=== PATIENT | male | born 1970 | race Caucasian/White ===

== ENCOUNTER 2024-04-18 14:10 | Emergency (ER) | payer BC ==
[2024-04-18 14:21] VITALS: TEMP 98
--- NOTE | 2024-04-18 14:25 | ERPHSYRPT ---
- History of Present Illness Historian: patient Exam Limitations: no limitations Physician History: Patient had chest pain for about 4 days. He says it feels like a muscle spasm. It is in his left chest. Lying down makes it worse. Exertion makes a little bit worse. It is pretty much constant but gets worse when he lies down. Nothing else makes it worse. He does not have any fever chills or infectious symptoms. He has not had cardiac history in the past. He denies nausea vomiting and diaphoresis. He has a history of hypertension Aspirin Treatment Today: no aspirin today Allergies/Adverse Reactions: No Known Drug Allergies Allergy (Verified 04/18/24 14:11) - Review of Systems Constitutional: No Symptoms Eyes: No Symptoms Ears, Nose, & Throat: No Symptoms Respiratory: No Symptoms Abdominal/Gastrointestinal: No Symptoms Genitourinary Symptoms: No Symptoms All Other Systems: Reviewed and Negative - Nursing Vital Signs Nursing Vital Signs: Initial Vital Signs Temperature 98 F 04/18/24 14:13 Pulse Rate 69 04/18/24 14:13 Respiratory Rate 17 04/18/24 14:13 Blood Pressure 146/102 04/18/24 14:13 O2 Sat by Pulse Oximetry 98 04/18/24 14:13 Pain Scale Pain Intensity 6 - Physical Exam General Appearance: no apparent distress Eye Exam: PERRL/EOMI Neck Exam: normal inspection, non-tender Respiratory Exam: normal breath sounds, chest tenderness, lungs clear Cardiovascular Exam: regular rate/rhythm, normal heart sounds Gastrointestinal/Abdomen Exam: soft, normal bowel sounds, No tenderness, No distention Back Exam: normal inspection Extremity Exam: normal inspection, normal range of motion, No pedal edema Neurologic Exam: alert, oriented x 3, cooperative Skin Exam: normal color, warm, dry - Course Nursing assessment & vital signs reviewed: Yes EKG Interpreted by Me: RATE, NORMAL AXIS, NORMAL INTERVALS, NORMAL QRS Ordered Tests: Active Orders 24 hr Category Date Time Status EKG-ER Only STAT Care 04/18/24 14:18 Active CHEST 1 VIEW (PORTABLE) Stat Exams 04/18/24 14:18 Completed CBC W DIFF Stat Lab 04/18/24 14:40 Completed CMP Stat Lab 04/18/24 14:40 Completed D-DIMER QUANTITATIVE Stat Lab 04/18/24 14:40 Completed TROPONIN Q4H Lab 04/18/24 14:40 Completed TROPONIN Q4H Lab 04/18/24 18:30 Ordered TROPONIN Q4H Lab 04/18/24 22:30 Ordered Medication Summary Discontinued Medications Generic Name Dose Route Start Last Admin Trade Name Donal PRN Reason Stop Dose Admin Potassium Chloride 40 meq 04/18/24 15:07 04/18/24 15:13 Potassium Chloride Tab 10 Meq Tab PO 04/18/24 15:08 40 meq STAT ONE Administration Potassium Chloride Confirm 04/18/24 15:10 Potassium Chloride Tab 10 Meq Tab Administered 04/18/24 15:11 Dose 40 meq .ROUTE .STK-MED ONE Lab/Rad Data: Laboratory Result Diagrams 04/18/24 14:40 04/18/24 14:40 Laboratory Results 04/18/24 04/18/24 04/18/24 Range/Units 14:40 14:40 14:40 WBC (4.23-9.07) x10^3/uL RBC (4.63-6.08) x10^6/uL Hgb (13.7-17.5) g/dL Hct (40.1-51.0) % MCV (79.0-92.2) fL MCH (25.7-32.2) pg MCHC (32.3-36.5) g/dL RDW (11.6-14.4) % Plt Count (163-337) x10^3/uL MPV (9.4-12.4) fL Gran % (34.0-67.9) % Immature Gran % (Auto) (0.001-0.429) % Nucleat RBC Rel Count (0.00-0.2) % Eos # (Auto) (0.04-0.54) x10^3/uL Immature Gran # (Auto) (0.001-0.031) x10^3u/L Absolute Lymphs (auto) (1.32-3.57) x10^3/uL Absolute Monos (auto) (0.30-0.82) x10^3/uL Absolute Nucleated RBC (0.00-0.012) x10^3u/L Lymphocytes % (21.8-53.1) % Monocytes % (5.3-12.2) % Eosinophils % (0.8-7.0) % Basophils % (0.2-1.2) % Absolute Granulocytes (1.78-5.38) x10^3/uL Basophils # (0.01-0.08) x10^3/uL D-Dimer 0.47 (0.0-0.50) mg/L Sodium 134 L (135-145) mmol/L Potassium 3.0 L* (3.5-5.1) mmol/L Chloride 99 (98-107) mmol/L Carbon Dioxide 28 (22-30) mmol/L Anion Gap 10.7 (5-15) MEQ/L BUN 21 H (9-20) mg/dL Creatinine 1.17 (0.66-1.25) mg/dL Estimated GFR 73.2 ML/MIN Glucose 79 (74-106) mg/dL Calcium 8.4 (8.4-10.2) mg/dL Total Bilirubin 0.90 (0.2-1.3) mg/dL AST 35 (17-59) U/L ALT 33 (0-50) U/L Alkaline Phosphatase 54 (38-126) U/L Troponin I 0.031 (0.000-0.033) ng/mL Serum Total Protein 6.5 (6.3-8.2) g/dL Albumin 4.1 (3.5-5.0) g/dL Influenza Type A Ag (NEGATIVE) Influenza Type B Ag (NEGATIVE) RSV (PCR) (NEGATIVE) SARS-CoV-2 (PCR) (NEGATIVE) 04/18/24 04/18/24 Range/Units 14:40 14:18 WBC 4.4 (4.23-9.07) x10^3/uL RBC 6.08 (4.63-6.08) x10^6/uL Hgb 17.8 H (13.7-17.5) g/dL Hct 50.8 (40.1-51.0) % MCV 83.6 (79.0-92.2) fL MCH 29.3 (25.7-32.2) pg MCHC 35.0 (32.3-36.5) g/dL RDW 12.2 (11.6-14.4) % Plt Count 158 L (163-337) x10^3/uL MPV 9.9 (9.4-12.4) fL Gran % 52.3 (34.0-67.9) % Immature Gran % (Auto) 0.2 (0.001-0.429) % Nucleat RBC Rel Count 0.0 (0.00-0.2) % Eos # (Auto) 0.05 (0.04-0.54) x10^3/uL Immature Gran # (Auto) 0.01 (0.001-0.031) x10^3u/L Absolute Lymphs (auto) 1.54 (1.32-3.57) x10^3/uL Absolute Monos (auto) 0.45 (0.30-0.82) x10^3/uL Absolute Nucleated RBC 0.00 (0.00-0.012) x10^3u/L Lymphocytes % 35.2 (21.8-53.1) % Monocytes % 10.3 (5.3-12.2) % Eosinophils % 1.1 (0.8-7.0) % Basophils % 0.9 (0.2-1.2) % Absolute Granulocytes 2.28 (1.78-5.38) x10^3/uL Basophils # 0.04 (0.01-0.08) x10^3/uL D-Dimer (0.0-0.50) mg/L Sodium (135-145) mmol/L Potassium (3.5-5.1) mmol/L Chloride (98-107) mmol/L Carbon Dioxide (22-30) mmol/L Anion Gap (5-15) MEQ/L BUN (9-20) mg/dL Creatinine (0.66-1.25) mg/dL Estimated GFR ML/MIN Glucose (74-106) mg/dL Calcium (8.4-10.2) mg/dL Total Bilirubin (0.2-1.3) mg/dL AST (17-59) U/L ALT (0-50) U/L Alkaline Phosphatase (38-126) U/L Troponin I (0.000-0.033) ng/mL Serum Total Protein (6.3-8.2) g/dL Albumin (3.5-5.0) g/dL Influenza Type A Ag NEGATIVE (NEGATIVE) Influenza Type B Ag NEGATIVE (NEGATIVE) RSV (PCR) NEGATIVE (NEGATIVE) SARS-CoV-2 (PCR) POSITIVE A (NEGATIVE) - Progress Progress: re-examined, unchanged Air Movement: good Progress Note: Patient was stable throughout stay. His EKG was done as interpreted by me. There is no acute findings.. His troponin was not elevated. I do not think that is his heart. His history did not indicate that it was cardiac either. His chest x-ray was clear. He is COVID-positive.He may have some pleuritic symptoms from that infection. At this time I think the patient stable for discharge. And when to send him home with NSAIDs and something for pain if he needs it. 04/18/24 15:26 Medical Desision Making - Risk of complications Low Risk: Low risk of morbidity from additional dx testing or treatment - Departure Departure Disposition: Home Clinical Impression: COVID-19 Condition: Stable Critical Care Time: No Referrals: LIBERTAD MCMILLAN [ACTIVE STAFF] - Follow up/PCP as directed Instructions: COVID-19 ED Prescriptions: Potassium Chloride 20 meq PO BID #30 tablet
[2024-04-18 14:36] VITALS: RESP 18
--- NOTE | 2024-04-18 14:40 | XRAY ---
Indication: Chest pain. Comparison: None Portable chest inflated and clear. Heart is enlarged. Bony thorax intact with minimal degenerative changes. Impression: Cardiomegaly. Negative for acute pneumonic process or CHF.
[2024-04-18 14:41] LABS: Absolute Neutrophil Ct (ANC) 2.28 x10^3/uL (1.78-5.38); BASOPHIL % 0.9 % (0.2-1.2); Basophil (Absolute #) 0.04 x10^3/uL (0.01-0.08); Eosinophil % 1.1 % (0.8-7.0); Eosinophil (Absolute #) 0.05 x10^3/uL (0.04-0.54); Hematocrit 50.8 % (40.1-51.0); Hemoglobin 17.8 g/dL (13.7-17.5); IMMATURE GRAN # 0.01 x10^3u/L (0.001-0.031); IMMATURE GRAN % 0.2 % (0.001-0.429); Lymphocyte (Absolute #) 1.54 x10^3/uL (1.32-3.57); Lymphocytes % 35.2 % (21.8-53.1); Mean Cell Volume 83.6 fL (79.0-92.2); Mean Corpuscular Hemoglobin 29.3 pg (25.7-32.2); Mean Platelet Volume 9.9 fL (9.4-12.4); Monocyte (Absolute #) 0.45 x10^3/uL (0.30-0.82); Monocytes % 10.3 % (5.3-12.2); Neutrophil % 52.3 % (34.0-67.9); Platelet Count 158 x10^3/uL (163-337); Red Blood Count 6.08 x10^6/uL (4.63-6.08); Red Cell Distribution Width 12.2 % (11.6-14.4); White Blood Count 4.4 x10^3/uL (4.23-9.07)
[2024-04-18 14:57] LABS: ALBUMIN 4.1 g/dL (3.5-5.0); ANION GAP 10.7 MEQ/L (5-15); BILIRUBIN,TOTAL 0.9 mg/dL (0.2-1.3); Calcium 8.4 mg/dL (8.4-10.2); Creatinine 1 1.17 mg/dL (0.66-1.25); EST GLOMERULAR FILTRATION RATE 73.2 ML/MIN; Total Protein 6.5 g/dL (6.3-8.2)
[2024-04-18] MEDS ORDERED: Klor Con ONE (15:10)
[2024-04-18] MEDS: Klor Con PO ONE (15:13)
[2024-04-18 15:17] LABS: INFLUENZA A NEGATIVE (NEGATIVE); INFLUENZA B NEGATIVE (NEGATIVE); RESPIRATORY SYNCTIAL VIRUS NEGATIVE (NEGATIVE)
[2024-04-18 15:18] LABS: SARS-CoV-2 Xpert Express POSITIVE (NEGATIVE)
[2024-04-18 15:47] VITALS: BP 128/88; PULSE 65; O2SAT 93
== END 2024-04-18 16:00 | disposition home or self-care (01) ==
LOC: ED 14:10
DX: U07.1 COVID-19 (principal); R07.9 Chest pain, unspecified
CPT/HCPCS: 0241U; 36415; 71045; 80053; 84484; 85025; 85379; 93005; 99284; A9270-GY